=== PATIENT | male | born 2000 | race Hispanic/Latino ===

== ENCOUNTER 2020-03-24 19:31 | Emergency (ER) | payer OTHER ==
[2020-03-24] MEDS ORDERED: AMOXICILLIN/POTASSIUM CLAV 875-125 TABLET PO ONE (20:15)
== END 2020-03-24 20:48 | disposition home or self-care (01) ==
LOC: EDBD 19:31 → EDH 19:31
DX: S81.851A Open bite, right lower leg, initial encounter (principal); W54.0XXA Bitten by dog, initial encounter; Y93.89 Activity, other specified; Y92.098 Other place in other non-institutional residence as the place of occurrence of the external cause; Y99.8 Other external cause status